=== PATIENT | male | born 1985 | race Caucasian/White ===

== ENCOUNTER 2017-01-20 11:29 | Day surgery (SDC) | payer MEDICAID ==
[2017-01-20] MEDS ORDERED: METHYLENE BLUE 0.5% 50 MG/10 ML AMP ONE (11:36)
[2017-01-20] MEDS ORDERED: BUPIVACAINE 0.5% 30 ML SDV ONE (11:36)
[2017-01-20] MEDS ORDERED: ceFAZolin 2 GM/DEXTROSE 100 ML IV ONE (12:00)
[2017-01-20] MEDS ORDERED: MIDAZOLAM 2 MG/2 ML VIAL ONE (13:12)
[2017-01-20] MEDS ORDERED: PROPOFOL 200 MG/20 ML VIAL ONE (13:18)
[2017-01-20] MEDS ORDERED: fentaNYL 100 MCG/2 ML INJ ONE ×3 (13:18→15:25)
[2017-01-20] MEDS ORDERED: SURGIFLO MATRIX KIT WITH THROMBIN TP ONE (14:08)
[2017-01-20] MEDS ORDERED: HYDROmorphONE/DILAUDID 1 MG/ML SYR ONE (15:45)
[2017-01-20] MEDS ORDERED: oxyCODONE IR 5 MG TAB ONE (16:41)
--- NOTE | 2017-01-21 03:10 | GOP ---
[f rep st] OPERATIVE REPORT DATE OF OPERATION: 01/20/2017 SURGEON: Benja Prieot MD CYLINDRICAL MIXER: None. ANESTHESIA: General endotracheal. ANESTHESIOLOGIST: Dr. Duque. PREOPERATIVE DIAGNOSIS: Pilonidal cyst. POSTOPERATIVE DIAGNOSIS: Pilonidal cyst. PROCEDURE PERFORMED: 1. Pilonidal cystectomy. 2. Modified Karydakis advancement flap closure measuring 10 x 4 cm. FINDINGS: Two superior pits led down to 1 inferior draining sinus. No side branches. Entire area excised down to the sacral fascia, closed with an advancement flap. SPECIMENS: Pilonidal cyst. ESTIMATED BLOOD LOSS: 20 cc. DESCRIPTION OF PROCEDURE: The patient was greeted in the preoperative suite. Once again, risks, benefits, and alternatives were discussed. A consent was signed. He was then brought back to the operative suite, placed on the OR table in supine position. After all anesthesia machines, including SCDs, were on and functioning, a [employer] time-out was performed. General endotracheal anesthesia was then induced without incident. The patient was then flipped into the prone position with all pressure points appropriately padded. His rectal area was trimmed and prepped and draped in typical sterile fashion. I commenced the procedure by outlining the area to be excised. Once this was done, I injected 0.5% Marcaine with epinephrine into the area to create a field block. I commenced the procedure by removing both the superior pits and the inferior draining sinus. Initially, once this tissue was removed and I saw no side branches by utilizing hydrogen peroxide, I turned my attention toward first creating my flap. On the medial portion I created a skin flap approximately 5 cm undermined off the underlying subcutaneous tissue for the entirety of the incision. Once it was felt that I had adequate flap to close the area, I released the tension on either side of the buttock. I did use a Ray-Kelly on the underlying tissue to ensure that I had good bleeding viable tissue without any underlying granulation. I then turned my attention toward closing. Again, the underlying fat and subcutaneous tissue was closed in multiple layers. The deepest of which was done with interrupted 0 Vicryl. The middle layer done with interrupted 2-0 Vicryl and the most superficial which was done with interrupted 3-0 Vicryl. I then reapproximated my skin flap using multiple interrupted 2-0 Prolene sutures, noting excellent skin reapproximation with minimal tension. Over this a layer of bacitracin, Telfa sterile gauze, ABD and mesh underwear were placed. The patient was then flipped back to a supine position onto the medical gurney, extubated and taken to the PACU in satisfactory condition. DRAINS: None. COUNTS: All counts were reported as correct x2. /[id number]/MODL MTDD
== END 2017-01-20 17:20 | disposition home or self-care (01) ==
LOC: FSGY 11:29
PROVIDERS: ATTEND Surgery
PROC: 0JB90ZZ Excision of Buttock Subcutaneous Tissue and Fascia, Open Approach (ICD-10-PCS; principal; 2017-01-20 13:30)
DX: L05.91 Pilonidal cyst without abscess (principal)
CPT/HCPCS: J0690; J1170; J2250; J2704; J3010; Q9968

== ENCOUNTER 2017-01-25 15:03 | Emergency (ER) | payer MEDICAID ==
--- NOTE | 2017-01-25 16:51 | EDPHY ---
H & P Time Seen by Provider: 01/25/17 16:14 HPI/ROS: CHIEF COMPLAINT: Surgical site problem HISTORY OF PRESENT ILLNESS: Patient is a 31-year-old male who is status post pilonidal cyst removal by Dr. Rizvi all other on 01/20/2017. He states that 1 of the stitches is digging into his office at butt cheek. He has been able the visualized dysrhythmia. He has had mild bloody discharge from the injury site. The patient's incision site from the surgery is healing well per report. He has had no fevers or chills. No pain with defecation. No nausea vomiting. REVIEW OF SYSTEMS: My complete review of systems is negative except as mentioned in the HPI. Past Medical/Surgical History: Includes pilonidal cyst, pneumonia, back surgery, ACL repair, femur surgery Smoking Status: Never smoked Physical Exam: Vitals noted GENERAL: Well-appearing, in no acute distress, alert. HEENT: Eyes normal to inspection, normal pharynx, no signs of dehydration. NECK: No thyromegaly, no lymphadenopathy, supple. RESPIRATORY: Clear to auscultation bilaterally, no rales, rhonchi or wheezing. CVS: Regular rate and rhythm, no rubs, murmurs, or gallops. ABDOMEN: Soft, nontender, nondistended, no organomegaly. BACK: Normal to inspection, no CVA tenderness. The buttock: Patient has a well-healing surgical incision on the left butt cheek. Wound is clean dry and intact. 1 of the mid sutures is debriding into the right buttock. SKIN: Normal color, no rash, warm, dry. No pallor. EXTREMITIES: No pedal edema, normal NEURO/PSYCH: Alert and oriented, normal mood and affect Constitutional: Initial Vital Signs Temperature (C) 36.5 C 01/25/17 15:06 Heart Rate 68 01/25/17 15:06 Respiratory Rate 18 01/25/17 15:06 Blood Pressure 129/79 H 01/25/17 15:06 O2 Sat (%) 96 01/25/17 15:06 O2 Delivery Mode Room Air Allergies/Adverse Reactions: No Known Allergies Allergy (Verified 01/25/17 15:05) Home Medications: Medication Instructions Recorded Oxycontin 20 mg PO Q4 01/20/17 Medical Decision Making ED Course/Re-evaluation: I discussed the findings with Dr. Rob who was on-call for Dr. Prieto. He recommended I trimmed the suture but keep it in place. A Mepilex was placed over this site to protect the skin. The patient was given a few dressings to take home. He will follow up with Dr. Prieto on . Differential Diagnosis: My differential includes but is not limited to laceration, wound infection, dehiscence, abscess, cellulitis Departure - Departure Disposition: Home, Routine, Self-Care Clinical Impression: Wound, open, buttock with complication Qualifiers: Encounter type: initial encounter Laterality: right Qualified Code(s): S31.819A - Unspecified open wound of right buttock, initial encounter Condition: Good Instructions: Surgical Site Infections (ED) Additional Instructions: Your wound appears to be healing well. You do not need antibiotics. I trimmed down the suture at the location of irritation. I dressing was placed. You should continue to wear the dressing until you follow up with Dr. Prieto. Referrals: JEANNETTE BARBOSA [Other] - As per Instructions Benja Prieto MD [Medical Doctor] - 2-3 days, call for appt.
[2017-01-25 17:17] VITALS: BP 124/74; PULSE 78; RESP 16; TEMP 98.1; O2SAT 97
== END 2017-01-25 17:17 | disposition home or self-care (01) ==
DX: T81.4XXA Infection following a procedure, initial encounter (principal); Y82.8 Other medical devices associated with adverse incidents